=== PATIENT | male | born 2000 | race Two or more races ===

== ENCOUNTER 2022-06-15 08:35 | Inpatient (IN) ==
[2022-06-15] MEDS ORDERED: SODIUM CHLORIDE 0.9% 1000ML 1,000 ML IV STA (09:05)
[2022-06-15] MEDS ORDERED: MoRPHine SULFATE 4 MG/ML 1 ML CARP\\VIAL IV STA ×2 (09:05→14:23)
[2022-06-15] MEDS ORDERED: ONDANSETRON INJ 2 MG/ML 2 ML VIAL IV STA (09:10)
--- NOTE | 2022-06-15 09:10 | Emergency Department Note ---
History of Present Illness General Chief complaint: Abdominal Pain Stated complaint: ABD PAIN INTO BACK Time Seen by Provider: 06/15/22 08:53 History of Present Illness Maximum Pain Intensity: 7 22-year-old male presents emergency department for evaluation of abdominal pain. Patient was just discharged from this ED around 2:30 this morning for same symptoms. Labs, urinalysis, and CT imaging abdomen/pelvis with oral contrast were unremarkable. Patient states that symptoms returned around 7 AM waking him up from his sleep. He reports severe mid abdominal cramps that started night. They have been waxing and waning. It is worse after eating but will also come on randomly. There are no alleviating factors. He has associated vomiting last night and this morning as well as multiple episodes of loose "black" stools. He denies hematemesis, hematochezia, fever/chills, chest pain, SOB. He has taken OTC Protonix without relief in his symptoms. Denies marijunana use. Home Medications Medication Instructions Recorded Confirmed Type dicyclomine 20 mg tablet 20 mg PO Q6 PRN Cramps 06/14/22 06/15/22 History pantoprazole 40 mg tablet,delayed 40 mg PO QAM 06/14/22 06/15/22 History release ondansetron 4 mg disintegrating 4 mg PO Q6H PRN nausea and 06/15/22 Rx tablet vomiting #30 tabs pantoprazole 40 mg tablet,delayed 40 mg PO BID 30 days #60 tabs 06/15/22 Rx release (Protonix) sucralfate 1 gram tablet (Carafate) 1 g PO DAILY #30 tabs 06/15/22 Rx Allergies Allergy/AdvReac Type Severity Reaction Status Date / Time No Known Allergies Allergy Unverified 06/14/22 23:00 Past Med/Surg History Medical History (Updated 06/15/22 @ 14:54 by Kashif Pyle MD) Malaria Social History Smoking Status: Never smoker Preferred Language: Sri Lankan Feels Safe at Home: Yes Physical Exam Vital Signs Vital Signs - 24 hr 06/15/22 08:35 06/15/22 08:35 06/15/22 09:05 Temperature 36.6 C Temperature Source Temporal Artery Scan Pulse Rate 59 L 56 L Pulse Rate [Apical] 59 L Respiratory Rate 18 18 Blood Pressure 139/117 H Blood Pressure [Left Arm] Blood Pressure Mean 124 Blood Pressure Mean [Left Arm] Pulse Oximetry 100 94 Oxygen Delivery Method Room Air Sepsis Recent Fever Within 48 Hours No Sepsis New/Unexplained Change in Mental Status N/A Sepsis Action Taken by Nursing No Action Required 06/15/22 10:46 Temperature Temperature Source Pulse Rate Pulse Rate [Apical] 70 Respiratory Rate 18 Blood Pressure Blood Pressure [Left Arm] 122/67 Blood Pressure Mean Blood Pressure Mean [Left Arm] 85 Pulse Oximetry 100 Oxygen Delivery Method Sepsis Recent Fever Within 48 Hours Sepsis New/Unexplained Change in Mental Status Sepsis Action Taken by Nursing Constitutional: alert and oriented x3. Writhing in pain HEENT: normocephalic, atraumatic. normal conjunctiva.PERRLA. EOM's grossly intact. TMs pearly wyatt without effusion. Pharynx pink without exudate. Tonsils nonenlarged. Mucus membranes moist Neck: neck is supple, nontender. Respiratory: lungs are clear to auscultation without wheezes, rhonchi, or rales bilaterally. equal chest rise. normal respiratory effort, no accessory muscle use. Cardiovascular: normal heart sounds without murmur. regular rate and rhythm. GI: abdomen is soft, nondistended. Diffuse tenderness. No palpable masses. No rebound tenderness or guarding. No CVA tenderness : patient refused external and internal rectal exam Peripheral vascular: extremities warm and well perfused Psych:appropriate mood and affect. Course Administered Medications Discontinued Medications Sodium Chloride (Nss 1000ml) 1,000 mls @ 999 mls/hr IV .Q1H1M STA Stop: 06/15/22 10:05 Last Infusion: 06/15/22 10:36 Dose: 0 mls/hr Documented By: Admin: 06/15/22 09:21 Dose: 999 mls/hr Documented By: TANNER Famotidine (Pepcid 20mg Iv Push) 20 mg in 5 mls @ 2.5 mls/min IV NOW STA Stop: 06/15/22 10:13 Last Admin: 06/15/22 10:33 Dose: 2.5 mls/min Documented By: TANNER Sodium Chloride (Nss 1000ml) 1,000 mls @ 999 mls/hr IV .Q1H1M ONE Stop: 06/15/22 11:16 Last Infusion: 06/15/22 11:36 Dose: 0 mls/hr Documented By: Admin: 06/15/22 10:33 Dose: 999 mls/hr Documented By: TANNER Acetaminophen (Ofirmev) 1,000 mg in 100 mls @ 400 mls/hr IV NOW STA Stop: 06/15/22 13:22 Last Infusion: 06/15/22 14:22 Dose: 0 mls/hr Documented By: Admin: 06/15/22 13:22 Dose: 400 mls/hr Documented By: EBONIE Morphine Sulfate (Morphine Sulfate 4 Mg/Ml 1 Ml Carp\\Vial) 4 mg IV NOW STA Stop: 06/15/22 09:06 Last Admin: 06/15/22 09:13 Dose: 4 mg Documented By: TANNER Morphine Sulfate (Morphine Sulfate 4 Mg/Ml 1 Ml Carp\\Vial) 4 mg IV NOW STA Stop: 06/15/22 14:24 Last Admin: 06/15/22 14:28 Dose: 4 mg Documented By: TANNER Ondansetron HCl (Ondansetron Inj 2 Mg/Ml 2 Ml Vial) Confirm Administered Dose 4 mg .R[facility]TE .[facility] Stop: 06/15/22 09:12 Last Admin: 06/15/22 09:46 Dose: Not Given Documented By: TANNER Ondansetron HCl (Ondansetron Inj 2 Mg/Ml 2 Ml Vial) 4 mg IV NOW STA Stop: 06/15/22 09:11 Last Admin: 06/15/22 09:14 Dose: 4 mg Documented By: TANNER Sucralfate (Sucralfate 1 Gm Tab) 1 gm PO NOW STA Stop: 06/15/22 10:13 Last Admin: 06/15/22 10:32 Dose: 1 gm Documented By: TANNER Medical Decision Making Differential Diagnosis Appendicitis, testicular torsion, infections, diverticulitis, UTI, obstruction, mesenteric ischemia, aortic pathology, inflammatory bowel disease, renal colic, PUD, pancreatitis, biliary pathology, hernia, volvulus, constipation, as well as other pathologies. Laboratory Data Attestation: I reviewed the patient's lab results. 06/15/22 09:25 06/15/22 09:25 Lab Results 06/15/22 06/15/22 06/15/22 Range/Units 09:25 09:25 09:25 WBC 9.52 (4.8-10.8) K/ul RBC 6.41 H (4.70-6.10) M/uL Hgb 13.0 L (14.0-18.0) g/dl Hct 39.3 L (42.0-52.0) % MCV 61.3 L (80.0-100.0) fL MCH 20.3 L (25.0-34.0) pg MCHC 33.1 (32.0-36.0) g/dL RDW Std Deviation 31.6 L (36.4-46.3) fL RDW Coeff of Kira 16.4 H (11.5-14.5) % Plt Count 282 (130-400) K/uL MPV 9.6 (9.4-12.4) fL Immature Gran % (Auto) 0.5 % Neut % (Auto) 66.3 % Lymph % (Auto) 21.2 % [place] % (Auto) 8.1 % Eos % (Auto) 3.6 % Baso % (Auto) 0.3 % Neut # (Auto) 6.31 (1.40-6.50) K/uL Lymph # (Auto) 2.02 (1.2-3.4) K/uL [place] # (Auto) 0.77 H (0.11-0.59) K/uL Eos # (Auto) 0.34 (0-0.50) K/uL Baso # (Auto) 0.03 (0-0.2) K/uL Immature Gran # (Auto) 0.05 (0.01-0.20) K/uL Absolute Nucleated RBC 0.02 (0-0.12) K/uL Nucleated RBC % (auto) 0.2 % Polychromasia 1+ Microcytosis Present Ovalocytes 1+ Sodium 139 (136-145) mmol/L Potassium 3.4 L (3.5-5.1) mmol/L Chloride 104 (98-107) mmol/L Carbon Dioxide 27 (21-32) mmol/L Anion Gap 8 (3-11) BUN 9 (6-23) mg/dl Creatinine 1.22 (0.6-1.4) mg/dl Est Cr Clr Drug Dosing 101.6 ml/min Est GFR ( Amer) 96.3 ml/min Est GFR (Non-Af Amer) 83.1 ml/min BUN/Creatinine Ratio 7.4 L (10-20) Glucose 87 (70-99(Fasting)) mg/dl Lactate 2.6 H* (0.4-2.0) mmol/L Calcium 9.6 (8.6-10.3) mg/dl Total Bilirubin 2.9 H (0.2-1.0) mg/dl AST 19 (13-39) U/L ALT 11 (7-52) U/L Alkaline Phosphatase 72 (34-104) U/L Total Protein 7.4 (6.0-8.3) gm/dl Albumin 4.7 (3.4-5.0) gm/dl Globulin 2.7 (2.5-4.0) gm/dl Albumin/Globulin Ratio 1.7 (0.9-2) Lipase 21 (11-82) U/L 06/15/22 Range/Units 12:26 WBC (4.8-10.8) K/ul RBC (4.70-6.10) M/uL Hgb (14.0-18.0) g/dl Hct (42.0-52.0) % MCV (80.0-100.0) fL MCH (25.0-34.0) pg MCHC (32.0-36.0) g/dL RDW Std Deviation (36.4-46.3) fL RDW Coeff of Kira (11.5-14.5) % Plt Count (130-400) K/uL MPV (9.4-12.4) fL Immature Gran % (Auto) % Neut % (Auto) % Lymph % (Auto) % [place] % (Auto) % Eos % (Auto) % Baso % (Auto) % Neut # (Auto) (1.40-6.50) K/uL Lymph # (Auto) (1.2-3.4) K/uL [place] # (Auto) (0.11-0.59) K/uL Eos # (Auto) (0-0.50) K/uL Baso # (Auto) (0-0.2) K/uL Immature Gran # (Auto) (0.01-0.20) K/uL Absolute Nucleated RBC (0-0.12) K/uL Nucleated RBC % (auto) % Polychromasia Microcytosis Ovalocytes Sodium (136-145) mmol/L Potassium (3.5-5.1) mmol/L Chloride (98-107) mmol/L Carbon Dioxide (21-32) mmol/L Anion Gap (3-11) BUN (6-23) mg/dl Creatinine (0.6-1.4) mg/dl Est Cr Clr Drug Dosing ml/min Est GFR ( Amer) ml/min Est GFR (Non-Af Amer) ml/min BUN/Creatinine Ratio (10-20) Glucose (70-99(Fasting)) mg/dl Lactate 1.0 (0.4-2.0) mmol/L Calcium (8.6-10.3) mg/dl Total Bilirubin (0.2-1.0) mg/dl AST (13-39) U/L ALT (7-52) U/L Alkaline Phosphatase (34-104) U/L Total Protein (6.0-8.3) gm/dl Albumin (3.4-5.0) gm/dl Globulin (2.5-4.0) gm/dl Albumin/Globulin Ratio (0.9-2) Lipase (11-82) U/L MDM Narrative 22-year-old male who returns to emergency department in less than 12 hours for repeat evaluation of worsening abdominal pain. Review of pertinent visits and past medical history performed. Vital signs in ED within normal limits, afebrile. IV access was established and labs were obtained. CBC without leukocytosis. No acute anemia. Hemoglobin stable. CMP without significant electrolyte abnormalities. Renal function within normal limits. LFTs and lipase unremarkable. Lactate elevated at 2.6. Patient had CT abdomen/pelvis with oral contrast performed last evening. This was personally reviewed as well as interpreted by radiology and without any significant acute pathology. Clinically, patient is nontoxic-appearing, however, he is writhing in pain upon my initial evaluation. Lungs CTA. There is mild diffuse abdominal tenderness, no rebound tenderness or guarding. No CVA tenderness. Patient does note some dark stools, however declined rectal exam despite education on benefits. He was treated with IV morphine, Zofran as well as 1 L of fluids. Patient was reevaluated on multiple occasions throughout stay in the ED. His pain was adequately controlled and he was resting comfortably in bed following initial dose of morphine. He was updated on all exam findings and test results. Case was discussed with attending, Dr. Pink, who came to evaluate patient at bedside as well. Suspect symptoms are related to the gastric ulcer from NSAID use. Additional treatment with IV Protonix and Carafate was provided which did seem to help his symptoms. Upon further reevaluation, patient continued to remain stable. He was provided with another liter of fluids. A trial of p.o. clear liquid was performed and patient began to have increasing abdominal pain. He was given IV Tylenol at this time. After about an hour, patient states his abdominal pain is not improving. He was provided with another round of IV morphine. Initially, it was discussed that patient could be managed on an outpatient basis with GI follow-up. Unfortunately, his abdominal pain is intractable requiring multiple rounds of IV pain medications and I feel patient would be best treated at this time as inpatient for additional pain control as well as possible GI consultation and endoscopy for further evaluation. Patient was agreeable to this plan. Case was discussed with hospitalist, Dr. Pyle, who graciously accepted patient to his service for further management. Patient was admitted inpatient in stable condition. Impression & Plan Intractable abdominal pain Discharge Plan Visit Data Chief Complaint: Abdominal Pain Stated Complaint: ABD PAIN INTO BACK ED Provider: Carlyn Pink ED Midlevel Provider: Annamarie Posada Discharge Problem: Intractable abdominal pain Patient Disposition: Admitted As Inpatient Prescriptions Prescriptions: New sucralfate [Carafate] 1 gram tablet 1 g PO DAILY Qty: 30 0RF Rx Instructions: Take on empty stomach, 1 hour before meals. You may take up to 4 times daily. ondansetron 4 mg tablet,disintegrating 4 mg PO Q6H PRN (Reason: nausea and vomiting) Qty: 30 0RF pantoprazole [Protonix] 40 mg tablet,delayed release (DR/EC) 40 mg PO BID 30 Days Qty: 60 0RF No Action dicyclomine 20 mg tablet 20 mg PO Q6 PRN (Reason: Cramps) pantoprazole 40 mg tablet,delayed release (DR/EC) 40 mg PO QAM Referrals Referrals: [facility] [Primary Care Provider] - Kylah Jackson Jr, MD [Physician] - (ED Gastroenterology follow up)
[2022-06-15] MEDS ORDERED: ONDANSETRON INJ 2 MG/ML 2 ML VIAL ONE (09:11)
[2022-06-15 10:06] LABS: Basophils # (auto) 0.03 K/uL (0-0.2); Basophils % (auto) 0.3 %; Eosinophils # (auto) 0.34 K/uL (0-0.50); Eosinophils % (auto) 3.6 %; Hematocrit (blood only) 39.3 % (42.0-52.0); Immature Granulocytes # (auto) 0.05 K/uL (0.01-0.20); Immature Granulocytes % (auto) 0.5 %; Lymphocytes # (auto) 2.02 K/uL (1.2-3.4); Lymphocytes % (auto) 21.2 %; Mean Corpuscular Hemoglobin 20.3 pg (25.0-34.0); Mean Corpuscular Hgb Conc 33.1 g/dL (32.0-36.0); Mean Corpuscular Volume 61.3 fL (80.0-100.0); Monocytes # (auto) 0.77 K/uL (0.11-0.59); Monocytes % (auto) 8.1 %; Neutrophils # (auto) 6.31 K/uL (1.40-6.50); Neutrophils % (auto) 66.3 %; Nucleated RBC # (auto) 0.02 K/uL (0-0.12); Nucleated RBC % (auto) 0.2 %; RDW Coefficient of Variation 16.4 % (11.5-14.5); RDW Standard Deviation 31.6 fL (36.4-46.3); Red Blood Count 6.41 M/uL (4.70-6.10); White Blood Count 9.52 K/ul (4.8-10.8)
[2022-06-15] MEDS ORDERED: SUCRALFATE 1 GM TAB PO STA (10:12)
[2022-06-15] MEDS ORDERED: FAMOTIDINE 20MG IV PUSH 20 MG/5 ML SYR IV STA (10:12)
[2022-06-15] MEDS ORDERED: SODIUM CHLORIDE 0.9% 1000ML 1,000 ML IV ONE (10:16)
[2022-06-15 10:19] LABS: Albumin Globulin Ratio 1.7 (0.9-2); Albumin Level 4.7 gm/dl (3.4-5.0); BUN Creatinine Ratio 7.4 (10-20); Bilirubin,Total 2.9 mg/dl (0.2-1.0); Calcium 9.6 mg/dl (8.6-10.3); Creatinine Clr Calc Pharmacy 101.6 ml/min; Est GFR (African American) 96.3 ml/min; Est GFR (Non-African American) 83.1 ml/min; Globulin 2.7 gm/dl (2.5-4.0); Potassium 3.4 mmol/L (3.5-5.1); Total Protein 7.4 gm/dl (6.0-8.3)
[2022-06-15 10:27] LABS: Mean Platelet Volume 9.6 fL (9.4-12.4); Platelet Count 282 K/uL (130-400)
[2022-06-15 10:28] LABS: Microcytosis Present; Ovalocytes 1+; Polychromasia 1+
[2022-06-15] MEDS ORDERED: ACETAMINOPHEN 1,000 MG/100 ML VIAL IV STA (13:08)
--- NOTE | 2022-06-15 14:47 | History & Physical Report ---
Date of Service June 15, 2022 Assessment & Plan (1) Generalized abdominal pain: Plan: Suspect viral gastroenteritis possible prolonged due to antibiotic use without definitive reason to take this Stool PCR Urine drug screen - denied alcohol/marijuana use No recurrent episodes of abdominal pain to warrant more rare etiology workup at this stage No recent travel history Avoid opiates to avoid ileus Avoid NSAIDs just in case this is gastritis Low suspicion of gastritis based on exam, lack of stomach thickening on CT last night and lack of improvement with pantoprazole. However given lack of definitive etiology, dark stool and recent NSAID use, will continue on PPI and H2 edgar. Trial GI cocktail to see if this helps. If pain is persistent overnight or FOB +ve consider gastroenterology consult for possible EGD. (2) Mild anemia: Plan: Low MCV, basic workup completed and consistent with beta thalassemia trait which was confirmed with his physician in [place] on direct questioning after lab work completed (3) Beta thalassemia trait: Plan VTE Prophyalxis - low risk Diet - clear liquids, lactose intolerent Disposition - observation status to med/surg Admission and Anticipated Discharge Date Admission Date: June 15, 2022 History of Present Illness Chief Complaint: Abdominal pain Primary Care Provider: [facility] Denise Velasquez is a 22 year old male [employer] 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 Initial symptoms started 7 days ago. Occurred on waking up. Sleep cycle has been sporadic due to school work. Initially having cramps which comes on in waves. On Sunday he started having back stool and on advice of his physician from [place]. Due to pain at night he started taking ibuprofen 400mg / acetaminophen 325mg PO to help him sleep. Dark stool lasted till Sunday. Again on advice of his physician from [place] he started taking an O2 tablet on Sunday night (ofloxacin/ornidazole) - apparently to treat an unknown infection +/- h. pylori. Yesterday he was still having loose stool. Started vomiting yesterday evening. Unable to keep down any food at this time. He was seen in the ER last night and had an unremarkable CT A/P with oral and IV contrast. Pain improved with pain medication given and he was discharged home. However once the pain medication wore off his pain returned and trying to eat some rice he had further vomiting this morning therefore returned to the ER. Pain in middle of abdomen, comes with waves, severity 9/10 at worse, much worse whenever he tries to eat. He has never had similar episodes in the past. Last travel out of country in September 2021. No one else ill in household. Allergies Allergy/AdvReac Type Severity Reaction Status Date / Time No Known Allergies Allergy Unverified 06/14/22 23:00 Home Medications Medication Instructions Recorded Confirmed Type dicyclomine 20 mg tablet 20 mg PO Q6 PRN Cramps 06/14/22 06/15/22 History pantoprazole 40 mg tablet,delayed 40 mg PO QAM 06/14/22 06/15/22 History release ondansetron 4 mg disintegrating 4 mg PO Q6H PRN nausea and 06/15/22 Rx tablet vomiting #30 tabs pantoprazole 40 mg tablet,delayed 40 mg PO BID 30 days #60 tabs 06/15/22 Rx release (Protonix) sucralfate 1 gram tablet (Carafate) 1 g PO DAILY #30 tabs 06/15/22 Rx Past Med/Surg History Medical History Beta thalassemia trait Malaria Surgical History No significant past surgical history Social History Smoking Status: Never smoker Hx Alcohol Use: No Hx Substance Use: No Preferred Language: Upper Sorbian Communication Ability: Effective Linux Network Administrator Required: No Beliefs That Will Affect Care: None Current Living Situation: Other Current Living Situation Comment: room mates Other Information That Helps Us Care for You: No Feels Safe at Home: Yes Safety Concerns: Feels Safe At This Time Review of Systems Review of Systems: All systems reviewed & are unremarkable except as noted in HPI & below Physical Exam Constitutional: WD/WN, vitals as above Eyes: + anicteric sclerae; normal pupil size ENMT: external ear and nose normal, oropharynx normal Neck: trachea midline, no thyromegaly Respiratory: normal respiratory effort, lungs clear to auscultation Cardiovascular: RRR, no murmur, no edema Gastrointestinal (Abdomen): normal bowel sounds, soft, nontender, no hepatosplenomegaly Musculoskeletal: no cyanosis or clubbing, extremities motor strength 5/5 Skin: no rashes, warm and dry Neurologic: moves all extremities and awake; not confused Psychiatric: A+Ox3, euthymic affect Genitourinary: no CVA tenderness Results & Data Results & Data Vital Signs (Past 12 Hours) Vital Signs Temp Pulse Pulse Resp BP BP Pulse Ox 06/15/22 10:46 70 18 122/67 100 06/15/22 09:05 56 L 18 94 06/15/22 08:35 59 L 06/15/22 08:35 36.6 C 59 L 18 139/117 H 100 O2 Del Method 06/15/22 10:46 06/15/22 09:05 Room Air 06/15/22 08:35 06/15/22 08:35 Laboratory Results Abnormal lab results 06/15/22 06/15/22 06/15/22 Range/Units 09:25 09:25 09:25 RBC 6.41 H (4.70-6.10) M/uL Hgb 13.0 L (14.0-18.0) g/dl Hct 39.3 L (42.0-52.0) % MCV 61.3 L (80.0-100.0) fL MCH 20.3 L (25.0-34.0) pg RDW Std Deviation 31.6 L (36.4-46.3) fL RDW Coeff of Kira 16.4 H (11.5-14.5) % [place] # (Auto) 0.77 H (0.11-0.59) K/uL Potassium 3.4 L (3.5-5.1) mmol/L BUN/Creatinine Ratio 7.4 L (10-20) Lactate 2.6 H* (0.4-2.0) mmol/L Total Bilirubin 2.9 H (0.2-1.0) mg/dl Diagnostic Findings CT ABDOMEN + PELVIS With Contrast Oral - High Density Amt: 30ml Gastrograffin, IV Amt: 90ml Optiray 320 EXAM: CT Abdomen and Pelvis With Intravenous Contrast CLINICAL HISTORY: abd pain. TECHNIQUE: Axial computed tomography images of the abdomen and pelvis with intravenous contrast. CTDI is 5.53 mGy and DLP is 268.92 mGy-cm. Automated exposure control was utilized for the study. A dose lowering technique was utilized adhering to the principles of ALARA. CONTRAST: Patient received 30ml Gastrograffin of Oral - High Density and 90ml Optiray 320 of IV contrast COMPARISON: No relevant prior studies available. FINDINGS: Lung bases: Unremarkable. No mass. No consolidation. ABDOMEN: Liver: Unremarkable. No mass. Gallbladder and bile ducts: Unremarkable. No calcified stones. No ductal dilation. Pancreas: Unremarkable. No mass. No ductal dilation. Spleen: Unremarkable. No splenomegaly. Adrenals: Unremarkable. No mass. Kidneys and ureters: Unremarkable. No solid mass. No hydronephrosis. Stomach and bowel: No evidence for bowel obstruction with oral contrast noted extending from the stomach, throughout the small bowel to the level of the ileocecal region. No definite focal bowel mucosal asymmetry, accounting for regions of colonic decompression. No appreciable diverticulosis. Minimal stool burden. PELVIS: Appendix: A normal caliber appendix is noted posterior to the cecum in the right lower quadrant. Bladder: Unremarkable. No mass. Reproductive: Unremarkable as visualized. ABDOMEN and PELVIS: Intraperitoneal space: Unremarkable. No free air. No significant fluid collection. Bones/joints: No acute fracture. No dislocation. Soft tissues: Unremarkable. Vasculature: Unremarkable. No abdominal aortic aneurysm. Lymph nodes: Unremarkable. No enlarged lymph nodes. IMPRESSION: No evidence for bowel obstruction with oral contrast noted extending from the stomach, throughout the small bowel to the level of the ileocecal region. No definite focal bowel mucosal asymmetry, accounting for regions of colonic decompression. No appreciable diverticulosis. No free intraperitoneal fluid or pneumoperitoneum. Incidental normal caliber appendix. Medications Administered ER Medications Given: NSS 1L bolus Morphine 4mg IV Ondansetron 4mg IV Famotidine 20mg IV Carafate 1g PO NSS 1L bolus Acetaminophen 1000mg IV Morphine 4mg IV Code Status & VTE Plan Code Status Full VTE Prophylaxis Plan VTE Prophylaxis will be ordered: No PG Care Time/CCT Total # of Minutes Spent Total Time Spent with Patient: Total time spent is greater than 50% in coordination of care (as documented) at patient's floor/unit and/or counseling patient: Coding Level of Care Code 82080 INT INP/OBS CARE 2/55MIN Diagnoses Generalized abdominal pain R10.84 Mild anemia D64.9 Beta thalassemia trait D56.3
[2022-06-15] MEDS ORDERED: DICYCLOMINE HCL 10 MG/ML 2 ML AMP/VIAL IM ONE (15:05)
[2022-06-15] MEDS ORDERED: PANTOprazole 40 MG in SYRINGE 0 ML IV STA (15:06)
[2022-06-15] MEDS ORDERED: GI COCKTAIL ED USE PO ONE (15:24)
[2022-06-15 15:40] LABS: Reticulocyte % 1.7 % (0.5-2.0); Reticulocytes # 0.11 10^6/uL (0.02-0.10)
[2022-06-15 15:45] LABS: Ferritin 76.2 ng/ml (8-388)
[2022-06-15] MEDS ORDERED: ONDANSETRON INJ 2 MG/ML 2 ML VIAL IV PRN (16:55)
[2022-06-15 17:35] LABS: Vitamin B12 157 pg/ml (180-914)
[2022-06-15] MEDS ORDERED: MAGNESIUM SULFATE / D5W 1 GM/100 ML BAG IV ONE (18:20)
[2022-06-15] MEDS: LACTATED RINGER'S 1,000 ML IV SCH (19:25)
[2022-06-15] MEDS ORDERED: ACETAMINOPHEN 500 MG TAB PO SCH (21:00)
[2022-06-15] MEDS ORDERED: PANTOprazole 40 MG in SYRINGE 0 ML IV SCH (21:00)
[2022-06-15] MEDS ORDERED: MoRPHine SULFATE 2 MG/ML CARP IM PRN (21:47)
[2022-06-15] MEDS ORDERED: ALUMINUM/MAGNESIUM SUSP 18 ML, LIDOCAINE VISCOUS 2% SOLN 6 ML, BARCODE IDENTIFIER 1 EACH PO ONE (21:48)
[2022-06-15] MEDS: HYOSCYAMINE SULFATE 0.125 MG TAB SL PRN (22:07)
[2022-06-15] MEDS ORDERED: MELATONIN 3 MG TAB PO PRN (23:08)
[2022-06-16] MEDS: LIDOCAINE 5% 1 PATCH TD SCH (01:16)
[2022-06-16] MEDS: HYOSCYAMINE SULFATE 0.125 MG TAB SL PRN ×2 (03:08→13:30)
[2022-06-16] MEDS: LACTATED RINGER'S 1,000 ML IV SCH ×3 (04:36→20:39)
[2022-06-16 05:11] LABS: Amphetamines+Metham, Urine Neg (Neg); Barbiturates, Urine Neg (Neg); Benzodiazepine, Urine Neg (Neg); Cocaine, Urine Neg (Neg); MDMA (Ecstacy), Urine Neg (Neg); Methadone, Urine Neg (Neg); Opiate, Urine Pos (Neg); Phencyclidine, Urine Neg (Neg)
[2022-06-16] MEDS ORDERED: POLYETHYLENE (MIRALAX) 17 GM PACK PO PRN (05:14)
[2022-06-16] MEDS ORDERED: MoRPHine SULFATE 2 MG/ML CARP IV STA ×2 (05:24→16:41)
[2022-06-16] MEDS: CALCIUM CARBONATE 500 MG CHEWABLE TAB PO PRN (05:31)
[2022-06-16] MEDS: ACETAMINOPHEN 500 MG TAB PO SCH ×5 (05:31→23:09)
[2022-06-16] MEDS: ADVANCED PROBIOTIC 1250 MG CAPSULE PO SCH (08:19)
[2022-06-16] MEDS: FAMOTIDINE 20 MG in SYRINGE 3 ML IV SCH (08:21)
[2022-06-16] MEDS: PANTOprazole 40 MG in SYRINGE 0 ML IV SCH ×2 (08:21→20:31)
[2022-06-16 08:59] LABS: Basophils # (auto) 0.02 K/uL (0-0.2); Basophils % (auto) 0.3 %; Eosinophils # (auto) 0.33 K/uL (0-0.50); Eosinophils % (auto) 4.4 %; Hematocrit (blood only) 36.6 % (42.0-52.0); Hemoglobin 11.9 g/dl (14.0-18.0); Immature Granulocytes # (auto) 0.05 K/uL (0.01-0.20); Immature Granulocytes % (auto) 0.7 %; Lymphocytes # (auto) 1.89 K/uL (1.2-3.4); Lymphocytes % (auto) 25.3 %; Mean Corpuscular Hemoglobin 19.9 pg (25.0-34.0); Mean Corpuscular Hgb Conc 32.5 g/dL (32.0-36.0); Mean Corpuscular Volume 61.3 fL (80.0-100.0); Monocytes # (auto) 0.53 K/uL (0.11-0.59); Monocytes % (auto) 7.1 %; Neutrophils # (auto) 4.66 K/uL (1.40-6.50); Neutrophils % (auto) 62.2 %; RDW Coefficient of Variation 15.4 % (11.5-14.5); RDW Standard Deviation 31.8 fL (36.4-46.3); Red Blood Count 5.97 M/uL (4.70-6.10); White Blood Count 7.48 K/ul (4.8-10.8)
[2022-06-16 09:05] LABS: Adenovirus F 40/41 PCR Not Detected (NotDetected); Astrovirus PCR Not Detected (NotDetected); Campylobacter PCR Not Detected (NotDetected); Cryptosporidium PCR Not Detected (NotDetected); Cyclospora cayetanensis PCR Not Detected (NotDetected); Entamoeba histolytica PCR Not Detected (NotDetected); Enteroaggregative E.coli(EAEC) Not Detected (NotDetected); Enteropathogenic E.coli (EPEC) Not Detected (NotDetected); Enterotoxigenic E.coli (ETEC) Not Detected (NotDetected); Giardia lamblia PCR Not Detected (NotDetected); Norovirus GI/GII PCR Not Detected (NotDetected); Plesiomonas shigelloides PCR Not Detected (NotDetected); Rotavirus A PCR Not Detected (NotDetected); Salmonella PCR Not Detected (NotDetected); Sapovirus PCR Not Detected (NotDetected); Shiga-like Toxin E.coli (STEC) Not Detected (NotDetected); Shigella/Enteroinvasive E.coli Not Detected (NotDetected); Vibrio cholerae PCR Not Detected (NotDetected); Vibrio species PCR Not Detected (NotDetected); Yersinia enterocolitica PCR Not Detected (NotDetected)
[2022-06-16 09:07] LABS: Mean Platelet Volume 9.6 fL (9.4-12.4); Platelet Count 253 K/uL (130-400)
[2022-06-16 09:09] LABS: Albumin Level 4.1 gm/dl (3.4-5.0); Bilirubin Direct 0.4 mg/dl (0-0.2); Bilirubin,Total 2.9 mg/dl (0.2-1.0); Calcium 8.7 mg/dl (8.6-10.3); Est GFR (African American) 122.4 ml/min; Est GFR (Non-African American) 105.6 ml/min; Magnesium 1.8 mg/dl (1.7-2.4); Potassium 3.9 mmol/L (3.5-5.1); Total Protein 6.3 gm/dl (6.0-8.3)
[2022-06-16 09:42] LABS: Ovalocytes 1+; Polychromasia 1+; Schistocytes 1+
--- NOTE | 2022-06-16 11:41 | Gastrointestinal Consultation ---
Date of Consultation June 16, 2022 Assessment & Plan (1) Generalized abdominal pain: No ongoing, overt bleeding at present. -Carafate 1 gm four times daily -Protonix 40 mg BID -Avoid NSAIDs -US abdomen given rise in T bili since 06/14 -Further recommendations pending results of testing History of Present Illness Reason for Consultation: persistent abdominal pain Attending Physician: Kashif Pyle MD History of Present Illness Patient is a 22 yo male with PMH of beta thalassemia who presented to the ED with abdominal pain that has been ongoing x 1 week. He notes that his abdominal cramping is intermittent, generalized in location. He notes that he had a black stool last Sunday. He has been using NSAIDs. He notes he was taking an antibiotic for some unspecified infection. He had a Ct abdomen/pelvis in the ED that was unremarkable. T bili 2.9 (up from 2.0 earlier in the week when he first came to the ED for abdominal pain). He notes the pain continues with some relief with opioids. Food worsens his symptoms. He is on Protonix 40 mg BID & Carafate as well. He was prescribed Dicyclomine previously as a home med. H/H 11.0/36.6. Labs otherwise unremarkable. No pertinent family history. Allergies Allergy/AdvReac Type Severity Reaction Status Date / Time No Known Allergies Allergy Unverified 06/14/22 23:00 Home Medications Medication Instructions Recorded Confirmed Type dicyclomine 20 mg tablet 20 mg PO Q6 PRN Cramps 06/14/22 06/15/22 History pantoprazole 40 mg tablet,delayed 40 mg PO QAM 06/14/22 06/15/22 History release ondansetron 4 mg disintegrating 4 mg PO Q6H PRN nausea and 06/15/22 Rx tablet vomiting #30 tabs pantoprazole 40 mg tablet,delayed 40 mg PO BID 30 days #60 tabs 06/15/22 Rx release (Protonix) sucralfate 1 gram tablet (Carafate) 1 g PO DAILY #30 tabs 06/15/22 Rx Patient History Medical History Beta thalassemia trait Malaria Surgical History No significant past surgical history Social History Smoking Status: Never smoker Hx Alcohol Use: No Hx Substance Use: No Preferred Language: Czech Communication Ability: Effective Substance Abuse Therapist Required: No Beliefs That Will Affect Care: None Current Living Situation: Other Current Living Situation Comment: room mates Other Information That Helps Us Care for You: No Feels Safe at Home: Yes Safety Concerns: Feels Safe At This Time Review of Systems Constitutional: no fever and no chills Respiratory: no cough and no dyspnea Cardiovascular: no chest pain Gastrointestinal: + abdominal pain and + melena (last week) Psychiatric: no problem reported Hematologic / Lymphatic: no unexplained weight loss Physical Exam Constitutional: well developed Respiratory: normal respiratory effort Cardiovascular: Rate/Rhythm: regular rate Gastrointestinal (Abdomen): normal bowel sounds, soft, nontender, no hepatosplenomegaly Musculoskeletal: Head/Neck/Chest: normocephalic Psychiatric: Orientation: alert and oriented x 3 Results & Data Vital Signs (Past 12 Hours) Vital Signs Temp Pulse Resp BP Pulse Ox O2 Del Method 06/16/22 07:11 36.8 C 58 L 16 136/88 99 Room Air PG Care Time/CCT Total # of Minutes Spent Total Time Spent with Patient: Total time spent is greater than 50% in coordination of care (as documented) at patient's floor/unit and/or counseling patient: Coding Level of Care Code 61734 IN/OBS CONSULT LVL 4,60M Diagnoses Generalized abdominal pain R10.84
--- NOTE | 2022-06-16 13:35 | Hospitalist Progress Note ---
Date of Service June 16, 2022 Assessment & Plan (1) Generalized abdominal pain: Plan: Generalized abdominal pain, cramping and wave-like in quality, with hyperbilirubinemia and subjective report of dark stools Differential includes viral gastroenteritis, gastritis/PUD, biliary etiology No recent travel history Stool PCR negative CTAP without any acute concerning findings RUQ ordered given hyperbili and abd pain, pending Avoid opiates when possible to avoid ileus Avoid NSAIDs just in case this is gastritis Continue pantoprazole, famotidine, Carafate as it does appear that this is helping at least somewhat Per patient he had H. pylori testing through [facility], was unable to get in contact with them and advised patient to access his patient portal to see if he can see the results GI consulted and appreciate recommendations, will have further recommendations based on abdominal ultrasound (2) Hyperbilirubinemia: Plan: See above (3) Mild anemia: Plan: Hgb 11.9 with microcytic MCV, basic workup completed and consistent with beta thalassemia trait which was confirmed with his physician in [place] on direct questioning after lab work completed (4) Beta thalassemia trait: Plan: See above Plan Low risk for DVT; chemoprophylaxis not indicated NPO for now for RUQ US later today Med/Surg FULL CODE Admission and Anticipated Discharge Date Admission Date: June 15, 2022 Subjective With some worsening of abdominal pain overnight, improved with GI cocktail. Also had some back pain and given heating pad. Review of Systems Review of Systems: All systems reviewed & are unremarkable except as noted in Subjective Physical Exam Constitutional: WD/WN, vitals as above Respiratory: normal respiratory effort, lungs clear to auscultation Cardiovascular: RRR, no murmur, no edema Gastrointestinal (Abdomen): normal bowel sounds, soft, nontender, no hepato splenomegaly Skin: no rashes, warm and dry Psychiatric: A+Ox3, euthymic affect Results & Data Results & Data Vital Signs (Past 12 Hours) Vital Signs Temp Pulse Resp BP Pulse Ox O2 Del Method 06/16/22 07:11 36.8 C 58 L 16 136/88 99 Room Air PG Care Time/CCT Total # of Minutes Spent Total Time Spent with Patient: Total time spent is greater than 50% in coordination of care (as documented) at patient's floor/unit and/or counseling patient: Coding Level of Care Code 79869 SUB INP/OBS CARE 2/35MIN Diagnoses Generalized abdominal pain R10.84 Hyperbilirubinemia E80.6 Mild anemia D64.9 Beta thalassemia trait D56.3
[2022-06-16] MEDS ORDERED: ALUMINUM/MAGNESIUM SUSP 18 ML, LIDOCAINE VISCOUS 2% SOLN 6 ML, BARCODE IDENTIFIER 1 EACH PO ONE (16:36)
[2022-06-16] MEDS: SUCRALFATE 1 GM TAB PO SCH ×2 (16:57→20:27)
--- NOTE | 2022-06-16 19:37 | Ultrasound Report ---
ABDOMINAL ULTRASOUND, RIGHT UPPER QUADRANT HISTORY: Elevated bili, abdominal pain. COMPARISON: Abdomen and pelvis CT 06/15/2022. FINDINGS: Pancreas: The pancreas demonstrates a normal echotexture. Liver: Unremarkable. Gallbladder: No gallbladder wall thickening. No gallstones. CBD: 5 mm. Right kidney: No hydronephrosis. IMPRESSION: No significant abnormality identified within the right upper quadrant. ACT 112: Negative or not required by law. Electronically signed by: Jose Schultz M.D. 06/16/2022 7:35 PM
[2022-06-16] MEDS: ALUMINUM/MAGNESIUM SUSP 72 ML, LIDOCAINE VISCOUS 2% SOLN 24 ML, BARCODE IDENTIFIER 1 EACH PO PRN (20:30)
[2022-06-17] MEDS: HYOSCYAMINE SULFATE 0.125 MG TAB SL PRN ×3 (00:30→20:57)
[2022-06-17] MEDS ORDERED: SUCRALFATE 1 GM TAB PO STA (01:44)
[2022-06-17] MEDS ORDERED: LACTATED RINGER'S 1,000 ML IV ONE (01:46)
[2022-06-17] MEDS ORDERED: HYDROmorphone INJ 0.5 MG/0.5 ML SYR IV STA (01:46)
[2022-06-17] MEDS: ACETAMINOPHEN 500 MG TAB PO SCH ×6 (01:59→22:11)
--- NOTE | 2022-06-17 02:07 | Communication Note ---
Date of Service: June 17, 2022 Notified via [place] text at approximately 1 AM about patient's severe abdominal pain despite Protonix, Levsin, and GI cocktail. Went to bedside, where patient appeared colicky, in moderate distress. Patient specifically reported midepigastric pain without radiation of pain, which he rated at 8/10. He denied nausea, dysuria, flank pain, or back pain. Most recent BM this AM. Active bowel sounds on auscultation, mild tenderness to deep palpation in all quadrants and epigastrium. Ordered repeat CBC, lactate (no leukocytosis, normal lactate). Considered KUB but held off, in light of recent normal RUQ ultrasound. Gave p.o. Carafate, IV Dilaudid 0.25 mg, IV LR bolus x1 L. Asked nurse to report back in 1 hour. Patient continued to report severe abdominal pain and unrelated. Gave IV morphine [address] abdomen pelvis with IV contrast. Gave IV Tylenol 1 g for persistent abdominal pain. 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
[2022-06-17 02:20] LABS: Basophils # (auto) 0.01 K/uL (0-0.2); Basophils % (auto) 0.1 %; Eosinophils # (auto) 0.37 K/uL (0-0.50); Eosinophils % (auto) 5.2 %; Hematocrit (blood only) 36.3 % (42.0-52.0); Hemoglobin 11.9 g/dl (14.0-18.0); Immature Granulocytes # (auto) 0.03 K/uL (0.01-0.20); Immature Granulocytes % (auto) 0.4 %; Lymphocytes % (auto) 36.6 %; Mean Corpuscular Hemoglobin 20.3 pg (25.0-34.0); Mean Corpuscular Hgb Conc 32.8 g/dL (32.0-36.0); Mean Corpuscular Volume 62.1 fL (80.0-100.0); Monocytes # (auto) 0.53 K/uL (0.11-0.59); Monocytes % (auto) 7.5 %; Neutrophils # (auto) 3.56 K/uL (1.40-6.50); Neutrophils % (auto) 50.2 %; Nucleated RBC # (auto) 0.02 K/uL (0-0.12); Nucleated RBC % (auto) 0.3 %; RDW Standard Deviation 31.9 fL (36.4-46.3); Red Blood Count 5.85 M/uL (4.70-6.10)
[2022-06-17 02:37] LABS: Albumin Globulin Ratio 1.7 (0.9-2); Albumin Level 4.3 gm/dl (3.4-5.0); BUN Creatinine Ratio 6.7 (10-20); Bilirubin,Total 2.7 mg/dl (0.2-1.0); Creatinine Clr Calc Pharmacy 118.1 ml/min; Est GFR (African American) 115.4 ml/min; Est GFR (Non-African American) 99.6 ml/min; Globulin 2.5 gm/dl (2.5-4.0); Potassium 3.8 mmol/L (3.5-5.1); Total Protein 6.8 gm/dl (6.0-8.3)
[2022-06-17 03:11] LABS: Mean Platelet Volume 9.3 fL (9.4-12.4); Microcytosis Present; Ovalocytes 1+; Platelet Count 253 K/uL (130-400); Schistocytes 1+
[2022-06-17] MEDS ORDERED: MoRPHine SULFATE 2 MG/ML CARP IV STA ×3 (03:28→23:08)
[2022-06-17] MEDS: CALCIUM CARBONATE 500 MG CHEWABLE TAB PO PRN ×2 (03:59→21:47)
[2022-06-17] MEDS ORDERED: OPTIRAY 320 100ml IV ONE (05:00)
[2022-06-17] MEDS ORDERED: ACETAMINOPHEN 1,000 MG/100 ML VIAL IV STA (06:06)
[2022-06-17] MEDS: LACTATED RINGER'S 1,000 ML IV SCH ×2 (06:22→18:15)
--- NOTE | 2022-06-17 07:08 | Hospitalist Progress Note ---
Date of Service June 17, 2022 Assessment & Plan (1) Generalized abdominal pain: Plan: Generalized abdominal pain, cramping and wave-like in quality, with hyperbilirubinemia and subjective report of dark stools Differential includes viral gastroenteritis, gastritis/PUD, biliary etiology No recent travel history Stool PCR negative CTAP x2 without any acute concerning findings RUQ ordered given hyperbili and abd pain, no acute findings Avoid NSAIDs just in case this is gastritis, however I suspect this is unlikely as patient's symptoms have not improved much despite Pepcid/Protonix/Carafate Continue morphine as needed for severe pain Per patient he had H. pylori testing through [facility], unfortunately these results are not available yet GI consulted and appreciate recommendations, recommends HIDA scan as most concerned for biliary etiology, unfortunately cannot be done in this hospital until Sunday, ordered. Also consideration of SMA syndrome, could consider CTA abdomen if HIDA scan is negative Case discussed with Dr. Barron on 06/17 (2) Hyperbilirubinemia: Plan: Indirect hyperbilirubinemia, with very mildly elevated reticulocytes, normal LDH, peripheral smear pending No previous studies to compare if this is a chronic elevation. This is in the setting of abdominal pain however without any findings on CTAP and alk phos is normal (3) Mild anemia: Plan: Hgb 11.9 with microcytic MCV, basic workup completed and consistent with beta thalassemia trait which was confirmed with his physician in [place] on direct questioning after lab work completed (4) Beta thalassemia trait: Plan: See above Plan Low risk for DVT; chemoprophylaxis not indicated Lactose intolerant to low-fat diet Med/Surg FULL CODE Plan: Given that patient is requiring IV pain medication at times over the last 36 hours for pain control, do not feel comfortable sending patient home until we can complete evaluation with HIDA scan. Admission and Anticipated Discharge Date Admission Date: June 15, 2022 Subjective Patient with some episodes of abdominal pain overnight, relieved with IV opiates. No complaints of chest pain or shortness of breath, diarrhea, nausea at this time. Does feel that when he is n.p.o. that the symptoms are worse than when he is allowed to have food. Review of Systems Review of Systems: All systems reviewed & are unremarkable except as noted in Subjective Physical Exam Constitutional: WD/WN, vitals as above Respiratory: normal respiratory effort, lungs clear to auscultation Cardiovascular: RRR, no murmur, no edema Gastrointestinal (Abdomen): normal bowel sounds, soft, nontender, no hepatosplenomegaly Skin: no rashes, warm and dry Psychiatric: A+Ox3, euthymic affect Results & Data Results & Data Vital Signs (Past 12 Hours) Vital Signs Temp Pulse Resp BP Pulse Ox O2 Del Method 06/16/22 21:01 37.0 C 79 15 125/76 98 Room Air PG Care Time/CCT Total # of Minutes Spent Total Time Spent with Patient: Total time spent is greater than 50% in coordination of care (as documented) at patient's floor/unit and/or counseling patient: Coding Level of Care Code 37310 SUB INP/OBS CARE 3/50MIN Diagnoses Generalized abdominal pain R10.84 Hyperbilirubinemia E80.6 Mild anemia D64.9 Beta thalassemia trait D56.3
[2022-06-17] MEDS: SUCRALFATE 1 GM TAB PO SCH ×4 (07:28→20:58)
--- NOTE | 2022-06-17 07:29 | Gastroenterology Progress Note ---
Date of Service June 17, 2022 Assessment & Plan (1) Epigastric abdominal pain: Plan unclear etiology for his pains at this point; they are out of proportion to the findings recs: --agree with repeat CT, if negative then consider obtain HIDA scan to further evaluate --continue PPI, pepcid, and carafate --obtain records of his recent h. pylori breath test at [facility] --diet as tolerated, supportive care Admission and Anticipated Discharge Date Admission Date: June 15, 2022 Subjective overnight had significant pains, with some vomiting, required pain medication. US abdomen unremarkable. repeat CT has been ordered by primary team. currently this morning appears comfortable, vitals are stable. already on carafate, IV pepcid 20 mg daily and protonix 40 mg BID. Review of Systems Constitutional: no fever and no chills Respiratory: no cough, no dyspnea and no dyspnea on exertion Cardiovascular: no chest pain and no dyspnea Gastrointestinal: as per Subjective / HPI Psychiatric: no depression and no anxiety Physical Exam Constitutional: WD/WN, vitals as above Respiratory: normal respiratory effort, lungs clear to auscultation Cardiovascular: RRR, no murmur, no edema Gastrointestinal (Abdomen): Inspection/Auscultation: normal bowel sounds; abdomen not distended Percussion/Palpation: abdomen soft; abdomen nontender, no guarding and no hepatosplenomegaly Musculoskeletal: no lower extremity edema Psychiatric: A+Ox3, euthymic affect Results & Data Results & Data Vital Signs (Past 12 Hours) Vital Signs Temp Pulse Resp BP Pulse Ox O2 Del Method 06/17/22 07:20 36.3 C L 62 18 121/74 99 Room Air 06/16/22 21:01 37.0 C 79 15 125/76 98 Room Air PG Care Time/CCT Total # of Minutes Spent Total Time Spent with Patient: Total time spent is greater than 50% in coordination of care (as documented) at patient's floor/unit and/or counseling patient: Coding Level of Care Code 36128 SUB INP/OBS CARE 3/50MIN Diagnoses Epigastric abdominal pain R10.13
--- NOTE | 2022-06-17 07:45 | CT Scan Report ---
Exam(s): CT ABDOMEN + PELVIS With Contrast IV Amt: 84 ml EXAM: CT Abdomen and Pelvis With Intravenous Contrast CLINICAL HISTORY: Abdominal pain. TECHNIQUE: Axial computed tomography images of the abdomen and pelvis with intravenous contrast. Automated exposure control was utilized for the study. A dose lowering technique was utilized adhering to the principles of ALARA. CONTRAST: Patient received 84 ml of IV contrast COMPARISON: CT abdomen and pelvis 06/15/2022 FINDINGS: Lung bases: Unremarkable. No mass. No consolidation. ABDOMEN: Liver: Unremarkable. No mass. Gallbladder and bile ducts: Unremarkable. No calcified stones. No ductal dilation. Pancreas: Unremarkable. No mass. No ductal dilation. Spleen: Unremarkable. No splenomegaly. Adrenals: Unremarkable. No mass. Kidneys and ureters: Unremarkable. No solid mass. No hydronephrosis. Stomach and bowel: Unremarkable. No obstruction. No mucosal thickening. PELVIS: Appendix: Normal appendix. Bladder: Unremarkable. No mass. Reproductive: Unremarkable as visualized. ABDOMEN and PELVIS: Intraperitoneal space: Unremarkable. No free air. No significant fluid collection. Bones/joints: No acute fracture. No dislocation. Soft tissues: Unremarkable. Vasculature: Unremarkable. No abdominal aortic aneurysm. Lymph nodes: Unremarkable. No enlarged lymph nodes. IMPRESSION: No acute findings in the abdomen or pelvis. Electronically signed by: Roz Lloyd MD 06/17/22 07:44 AM
[2022-06-17 07:53] LABS: Reticulocytes # 0.11 10^6/uL (0.02-0.10)
[2022-06-17] MEDS: ADVANCED PROBIOTIC 1250 MG CAPSULE PO SCH (09:05)
[2022-06-17] MEDS: LIDOCAINE 5% 1 PATCH TD SCH (09:05)
[2022-06-17] MEDS: FAMOTIDINE 20 MG in SYRINGE 3 ML IV SCH (09:05)
[2022-06-17] MEDS: PANTOprazole 40 MG in SYRINGE 0 ML IV SCH ×2 (09:10→20:58)
[2022-06-17] MEDS ORDERED: MoRPHine SULFATE 2 MG/ML CARP IV PRN (09:28)
[2022-06-17] MEDS: ALUMINUM/MAGNESIUM SUSP 72 ML, LIDOCAINE VISCOUS 2% SOLN 24 ML, BARCODE IDENTIFIER 1 EACH PO PRN (22:10)
[2022-06-18] MEDS: LACTATED RINGER'S 1,000 ML IV SCH ×3 (02:08→16:50)
[2022-06-18] MEDS: ACETAMINOPHEN 500 MG TAB PO SCH ×6 (02:16→21:10)
--- NOTE | 2022-06-18 07:04 | Hospitalist Progress Note ---
Date of Service June 18, 2022 Assessment & Plan (1) Generalized abdominal pain: Plan: Generalized abdominal pain, cramping and wave-like in quality, with hyperbilirubinemia and subjective report of dark stools Differential includes viral gastroenteritis, gastritis/PUD, biliary etiology No recent travel history Stool PCR negative CTAP x2 without any acute concerning findings RUQ ordered given hyperbili and abd pain, no acute findings Avoid NSAIDs just in case this is gastritis, however I suspect this is unlikely as patient's symptoms have not improved much despite Pepcid/Protonix/Carafate Continue morphine as needed for severe pain Per patient he had H. pylori testing through [facility], unfortunately these results are not available yet, have asked patient to continue to monitor his records GI consulted and appreciate recommendations, recommends HIDA scan as most c oncerned for biliary etiology, unfortunately cannot be done in this hospital until Sunday, ordered. Also consideration of SMA syndrome, could consider CTA abdomen if HIDA scan is negative Case discussed with Dr. Barron on 06/17 (2) Hyperbilirubinemia: Plan: Indirect hyperbilirubinemia, with very mildly elevated reticulocytes, normal LDH, hemoglobin stable, peripheral smear pending No previous studies to compare if this is a chronic elevation. This is in the setting of abdominal pain however without any findings on CTAP and alk phos is normal (3) Mild anemia: Plan: Hgb 11.9 with microcytic MCV, basic workup completed and consistent with beta thalassemia trait which was confirmed with his physician in [place] on direct questioning by admitting provider after lab work completed (4) Beta thalassemia trait: Plan: See above Plan Low risk for DVT; chemoprophylaxis not indicated Low-fat diet Med/Surg FULL CODE Plan: Given that patient is requiring IV pain medication at times over the last 2 days for pain control, do not feel comfortable sending patient home until we can complete evaluation with HIDA scan. Admission and Anticipated Discharge Date Admission Date: June 17, 2022 Subjective Patient without any acute events overnight. He continues to be concerned about having an ulcer. Still with episodic epigastric/back pain. Review of Systems Review of Systems: All systems reviewed & are unremarkable except as noted in Subjective Physical Exam Constitutional: WD/WN, vitals as above Respiratory: normal respiratory effort, lungs clear to auscultation Cardiovascular: RRR, no murmur, no edema Gastrointestinal (Abdomen): normal bowel sounds, soft, nontender, no hepatosplenomegaly Skin: no rashes, warm and dry Psychiatric: A+Ox3, euthymic affect Results & Data Results & Data Vital Signs (Past 12 Hours) Vital Signs Temp Pulse Resp BP Pulse Ox O2 Del Method 06/17/22 21:59 36.4 C L 50 L 16 151/83 H 100 Room Air PG Care Time/CCT Total # of Minutes Spent Total Time Spent with Patient: Total time spent is greater than 50% in coordination of care (as documented) at patient's floor/unit and/or counseling patient: Coding Level of Care Code 31411 SUB INP/OBS CARE 2/35MIN Diagnoses Generalized abdominal pain R10.84 Hyperbilirubinemia E80.6 Mild anemia D64.9 Beta thalassemia trait D56.3
[2022-06-18] MEDS: SUCRALFATE 1 GM TAB PO SCH ×4 (07:08→19:57)
[2022-06-18] MEDS: FAMOTIDINE 20 MG in SYRINGE 3 ML IV SCH (07:50)
[2022-06-18] MEDS: PANTOprazole 40 MG in SYRINGE 0 ML IV SCH ×2 (07:50→19:56)
[2022-06-18] MEDS: ADVANCED PROBIOTIC 1250 MG CAPSULE PO SCH (08:54)
[2022-06-18] MEDS: LIDOCAINE 5% 1 PATCH TD SCH (10:14)
[2022-06-18 17:02] LABS: Codeine Urine NEGATIVE ng/mL (<50); Hydrocodone Urine NEGATIVE ng/mL (<50); Hydromor Urine NEGATIVE ng/mL (<50); Morphine Urine 397 ng/mL (<50); Norhydrocodone Conf Ur NEGATIVE ng/mL (<50); Noroxycodone Urine NEGATIVE ng/mL (<50); Oxycodone Urine NEGATIVE ng/mL (<50); Oxymorph Urine NEGATIVE ng/mL (<50)
[2022-06-19] MEDS: ACETAMINOPHEN 500 MG TAB PO SCH ×3 (01:03→09:43)
[2022-06-19 07:10] LABS: Basophils # (auto) 0.01 K/uL (0-0.2); Basophils % (auto) 0.2 %; Eosinophils # (auto) 0.49 K/uL (0-0.50); Eosinophils % (auto) 7.6 %; Hematocrit (blood only) 37.2 % (42.0-52.0); Hemoglobin 12.3 g/dl (14.0-18.0); Immature Granulocytes # (auto) 0.05 K/uL (0.01-0.20); Immature Granulocytes % (auto) 0.8 %; Lymphocytes # (auto) 2.53 K/uL (1.2-3.4); Lymphocytes % (auto) 39.3 %; Mean Corpuscular Hemoglobin 20.3 pg (25.0-34.0); Mean Corpuscular Hgb Conc 33.1 g/dL (32.0-36.0); Mean Corpuscular Volume 61.5 fL (80.0-100.0); Monocytes # (auto) 0.52 K/uL (0.11-0.59); Monocytes % (auto) 8.1 %; Neutrophils # (auto) 2.83 K/uL (1.40-6.50); Nucleated RBC # (auto) 0.02 K/uL (0-0.12); Nucleated RBC % (auto) 0.3 %; RDW Coefficient of Variation 16.1 % (11.5-14.5); RDW Standard Deviation 31.6 fL (36.4-46.3); Red Blood Count 6.05 M/uL (4.70-6.10); White Blood Count 6.43 K/ul (4.8-10.8)
[2022-06-19] MEDS: SUCRALFATE 1 GM TAB PO SCH ×2 (07:25→13:15)
[2022-06-19 07:27] LABS: Albumin Globulin Ratio 1.8 (0.9-2); Albumin Level 4.4 gm/dl (3.4-5.0); BUN Creatinine Ratio 7.9 (10-20); Bilirubin,Total 2.8 mg/dl (0.2-1.0); Calcium 9.5 mg/dl (8.6-10.3); Creatinine Clr Calc Pharmacy 122.8 ml/min; Est GFR (African American) 120.9 ml/min; Est GFR (Non-African American) 104.4 ml/min; Globulin 2.4 gm/dl (2.5-4.0); Potassium 3.7 mmol/L (3.5-5.1); Total Protein 6.8 gm/dl (6.0-8.3)
[2022-06-19 07:40] LABS: Mean Platelet Volume 9.5 fL (9.4-12.4); Platelet Count 248 K/uL (130-400)
[2022-06-19 07:41] LABS: Hypochromasia Present; Microcytosis Present; Ovalocytes 1+; Schistocytes 1+
--- NOTE | 2022-06-19 09:11 | Nuclear Medicine Report ---
NM hepatobiliary CLINICAL HISTORY: 22 years-old Male with concern for gallbladder pathology, per GI. TECHNIQUE: Sequential anterior abdominal images were obtained through 60 minutes following the intra venous administration of 5.5 mCi of technetium-99m Choletec. COMPARISON: CT 06/17/2022 FINDINGS: There is prompt, uniform accumulation of the tracer by the liver. There is normal filling of the int rahepatic ducts, common bile duct and normal excretion of the tracer into the duodenum. The gallblad elvia fills normally. IMPRESSION: Normal hepatobiliary study. No scintigraphic evidence for acute cholecystitis or common bile duct obstruction. ACT 112: Negative or not required by law. The above report was generated using voice recognition software. It may contain grammatical, syntax o r spelling errors. Electronically signed by: Uriel Angeles M.D. 06/19/2022 9:10 AM
--- NOTE | 2022-06-19 09:23 | Communication Note ---
Date of Service: June 19, 2022 Patient is a 22 yo male with abdominal pain. He is off the floor this AM for a HIDA scan. We will await results of HIDA scan. If unremarkable, Dr. Barron had previously advised consideration of a CTA. Will also await H Pylori test results from [facility]. Continue IV PPI BID, change Famotidine to 20 mg BID, add Carafate 1 gm ACHS, & continue Levsin 0.125 mg q 6 hr prn.
[2022-06-19] MEDS: FAMOTIDINE 20 MG in SYRINGE 3 ML IV SCH (09:30)
[2022-06-19] MEDS: ADVANCED PROBIOTIC 1250 MG CAPSULE PO SCH (09:43)
[2022-06-19] MEDS: PANTOprazole 40 MG in SYRINGE 0 ML IV SCH (09:44)
[2022-06-19] MEDS: LIDOCAINE 5% 1 PATCH TD SCH (10:00)
--- NOTE | 2022-06-19 11:33 | Discharge Summary ---
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 Initial symptoms started 7 days ago. Occurred on waking up. Sleep cycle has been sporadic due to school work. Initially having cramps which comes on in waves. On Sunday he started having back stool and on advice of his physician from [place]. Due to pain at night he started taking ibuprofen 400mg / acetaminophen 325mg PO to help him sleep. Dark stool lasted till Sunday. Again on advice of his physician from [place] he started taking an O2 tablet on Sunday night (ofloxacin/ornidazole) - apparently to treat an unknown infection +/- h. pylori. Yesterday he was still having loose stool. Started vomiting yesterday evening. Unable to keep down any food at this time. He was seen in the ER last night and had an unremarkable CT A/P with oral and IV contrast. Pain improved with pain medication given and he was discharged home. However once the pain medication wore off his pain returned and trying to eat some rice he had further vomiting this morning therefore returned to the ER. Pain in middle of abdomen, comes with waves, severity 9/10 at worse, much worse whenever he tries to eat. He has never had similar episodes in the past. Last travel out of country in September 2021. No one else ill in household. 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 No rales wheezing or rhonchi Cardiac-regular rate and rhythm, normal S1 and S2 Abdomen-normal bowel sounds, nontender, no hepatosplenomegaly Extremities-no cyanosis, clubbing, or edema Neuro-cranial nerves II through XII intact, motor and sensory function within normal limits, strength symmetrical , no focal deficits Psych-normal affect, normal mood Discharge Data Allergies Allergy/AdvReac Type Severity Reaction Status Date / Time No Known Allergies Allergy Unverified 06/14/22 23:00 Consultations 06/15/22 14:40 ED Decision to Admit Stat 06/16/22 05:06 Consult Gastroenterology Routine Ordered Studies 06/16/22 11:38 US abdomen limited Routine 06/17/22 03:59 CT abd pelvis IV con only Stat Hospital Course (1) Generalized abdominal pain: Suspect underlying acute gastritis. HIDA scan negative for any acute problems. Stool Hemoccult negative. He is feeling better with Protonix and Carafate which we will continue at discharge. He is tolerating an oral diet at this time. Suspect elevated bilirubin is chronic due to underlying thalassemia. Appreciate GI consult and recommendations (2) Hyperbilirubinemia: Probably chronic and related to thalassemia. HIDA scan negative. No intervention necessary at this time. (3) Mild anemia: Due to thalassemia. No overt GI bleeding. Serial labs (4) Beta thalassemia trait: Producing mild chronic anemia and possibly mildly elevated total bilirubin Plan Home today, June 19, on Protonix and Carafate Total Time Total Time Spent Total Time Spent (In Minutes): 40 minutes Discharge Plan Discharge Items Patient Disposition: Home - Self-Care Reason For Visit: INTRACTABLE ABDOMINAL PAIN Discharge Diagnosis: Acute gastritis, chronically elevated total bilirubin Activity: Resume your previous activity Non-emergency contact: Primary Care Provider Call non-emergency contact if: you have any medication questions and your symptoms worsen Follow-up/Referrals: [facility] [Primary Care Provider] - Diet: Regular Addtl Attending Provider Instructions: Take Protonix and Carafate as directed Pending Studies at Discharge: No Stand-Alone Forms: My [facility] [employer], Smoking Cessation Medications and DC Order Prescriptions: New ondansetron 4 mg tablet,disintegrating 4 mg PO Q6H PRN (Reason: nausea and vomiting) Qty: 30 0RF sucralfate 1 gram Tablet 1 g PO ACHS Qty: 60 0RF Continued dicyclomine 20 mg tablet 20 mg PO Q6 PRN (Reason: Cramps) pantoprazole 40 mg tablet,delayed release (DR/EC) 40 mg PO QAM Qty: 30 0RF Discharge Orders: Discharge Order (Routine); Ordered 06/19/22 Ordered By: Robert Martell Admission Data Admit Date/Time: 06/17/22 08:59 Attending Provider: Robert Martell Admit Provider: Kashif Pyle Primary Care Provider: [facility] Other Providers: Kashif Pyle ; Kylah Jackson Jr Coding Level of Care Code 16221 INP/OBS DISCH >30 MIN Diagnoses Generalized abdominal pain R10.84 Hyperbilirubinemia E80.6 Mild anemia D64.9 Beta thalassemia trait D56.3
--- NOTE | 2022-06-19 12:16 | Discharge Summary ---
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 Initial symptoms started 7 days ago. Occurred on waking up. Sleep cycle has been sporadic due to school work. Initially having cramps which comes on in waves. On Sunday he started having back stool and on advice of his physician from [place]. Due to pain at night he started taking ibuprofen 400mg / acetaminophen 325mg PO to help him sleep. Dark stool lasted till Sunday. Again on advice of his physician from [place] he started taking an O2 tablet on Sunday night (ofloxacin/ornidazole) - apparently to treat an unknown infection +/- h. pylori. Yesterday he was still having loose stool. Started vomiting yesterday evening. Unable to keep down any food at this time. He was seen in the ER last night and had an unremarkable CT A/P with oral and IV contrast. Pain improved with pain medication given and he was discharged home. However once the pain medication wore off his pain returned and trying to eat some rice he had further vomiting this morning therefore returned to the ER. Pain in middle of abdomen, comes with waves, severity 9/10 at worse, much worse whenever he tries to eat. He has never had similar episodes in the past. Last travel out of country [place]. No one else ill in household. Principal Diagnosis Abdominal pain secondary to suspected acute gastritis, chronic hyperbilirubinemia Discharge Data Allergies Allergy/AdvReac Type Severity Reaction Status Date / Time No Known Allergies Allergy Unverified 06/14/22 23:00 Consultations 06/15/22 14:40 ED Decision to Admit Stat 06/16/22 05:06 Consult Gastroenterology Routine Ordered Studies 06/16/22 11:38 US abdomen limited Routine 06/17/22 03:59 CT abd pelvis IV con only Stat Total Time Total Time Spent Total Time Spent (In Minutes): 45 minutes Discharge Plan Discharge Items Patient Disposition: Home - Self-Care Reason For Visit: INTRACTABLE ABDOMINAL PAIN Discharge Diagnosis: Acute gastritis, chronically elevated total bilirubin Activity: Resume your previous activity Non-emergency contact: Primary Care Provider Call non-emergency contact if: you have any medication questions and your symptoms worsen Follow-up/Referrals: [facility] [Primary Care Provider] - (FOLLOW UP WITH [facility] [address] 7-10 DAYS AFTER DISCHARGE.) Diet: Regular Addtl Attending Provider Instructions: Take Protonix and Carafate as directed Pending Studies at Discharge: No Stand-Alone Forms: My [facility], Smoking Cessation Medications and DC Order Prescriptions: New ondansetron 4 mg tablet,disintegrating 4 mg PO Q6H PRN (Reason: nausea and vomiting) Qty: 30 0RF sucralfate 1 gram Tablet 1 g PO ACHS Qty: 60 0RF sucralfate 1 gram tablet 1 g PO ACHS 28 Days Qty: 28 0RF pantoprazole [Protonix] 40 mg tablet,delayed release (DR/EC) 40 mg PO DAILY 28 Days Qty: 28 0RF Continued pantoprazole 40 mg tablet,delayed release (DR/EC) 40 mg PO QAM Qty: 30 0RF dicyclomine 20 mg tablet 20 mg PO Q6 PRN (Reason: Cramps) Discharge Orders: Discharge Order (Routine); Ordered 06/19/22 Ordered By: Robert Martell Admission Data Admit Date/Time: 06/17/22 08:59 Attending Provider: Robert Martell Admit Provider: Kashif Pyle Primary Care Provider: [facility] Other Providers: Kashif Pyle ; Kylah Jackson Jr Other Interventions: Discharge Summary Assessment (RN) Last Done: 06/19/22 11:55 Coding Level of Care Code 25413 INP/OBS DISCH >30 MIN Diagnoses
[2022-06-19] MEDS ORDERED: SUCRALFATE 1 GM/10 ML UDC PO SCH (13:00)
[2022-06-19] MEDS ORDERED: FAMOTIDINE 20 MG in SYRINGE 3 ML IV SCH (21:00)
== END 2022-06-19 14:31 | disposition home or self-care (01) | DRG 392 ==
LOC: ED 08:35 → 3N 08:35 → SUATTDRO 15:37 → 3N 16:02 → SUATTDRO 06-17 08:59